=== PATIENT | female | born 1945 | race American Indian/Alaskan Native ===

== ENCOUNTER 2016-08-22 07:32 | Outpatient (CLI) | payer MEDICARE ==
[2016-08-22 08:21] LABS: Blood Urea Nitrogen 15 mg/dL (7-17)
[2016-08-22] MEDS ORDERED: NACL ONE ×2 (08:37→08:47)
[2016-08-22] MEDS ORDERED: FLUSH HEPARIN IV ONE (10:00)
--- NOTE | 2016-08-22 10:29 | Cat Scan Report ---
CT abdomen and pelvis without and with IV contrast: Hematuria. Transverse images are obtained from the lung bases to the ischium with coronal and sagittal 2-D reformatted images. There are no pulmonary nodules nor infiltrates. There are some parenchymal cyst in the lower left lung. Coronary vascular calcifications are present. Images of the upper abdomen demonstrates a distended gallbladder containing nonfocal high density material in the fundus. There is no wall thickening nor pericholecystic fluid. The abdominal findings are otherwise unremarkable. Images of the right kidney demonstrate a normal contour except for a small focal area of indentation along the lower lateral margin. In the lower pole region there is a very defined defined 16mm area of slight decreased attenuation relative to adjacent parenchyma. It does enhance as does the normal parenchyma but to a less degree. A 13 mm area of decreased parenchymal attenuation is noted on the left in the mid kidney showing no significant enhancement. There are no renal calcifications. The medial limb of the left adrenal gland is slightly patulous. No focal mass. The retroperitoneal structures are otherwise unremarkable except for mural calcification of the normal sized abdominal aorta. No adenopathy identified. There is a fat containing umbilical hernia the mouth of which is 3.1 cm wide. Sections of the pelvis demonstrate removal of her reproductive organs. Images of the urinary bladder demonstrates 11 mm mural thickening of the right bladder wall involving a small section of the bladder base around the entrance of the right ureter which appears uninvolved. Impression: 1. Abnormal thickening of the right bladder wall. Suspect mass. 2. Indeterminate hypodensities of both kidneys. Low suspicion of malignancy. 3. Abnormal gallbladder content. Suspect milk of calcium. 4. Coronary vascular calcification.
== END 2016-08-22 07:33 | disposition home or self-care (01) ==
LOC: CT 07:32
PROVIDERS: ATTEND Urology
DX: R31.0 Gross hematuria (principal); N32.89 Other specified disorders of bladder; K42.9 Umbilical hernia without obstruction or gangrene; I25.10 Atherosclerotic heart disease of native coronary artery without angina pectoris; J98.4 Other disorders of lung; I70.0 Atherosclerosis of aorta; Z90.710 Acquired absence of both cervix and uterus; Z87.891 Personal history of nicotine dependence
CPT/HCPCS: 36415; 74178; 82565; 84520; J1642; Q9967